=== PATIENT | female | born 1980 | race Caucasian/White ===

== ENCOUNTER 2017-11-08 05:25 | Day surgery (SDC) | payer BC ==
[~2017-11-08] VITALS: Ht 165.1 cm; Wt 53.5 kg
[~2017-11-08 05:25] MED LIST: DAILY VALUE1 EACH PO; Motrin PO; PRILOSEC OTC20 MG PO; ZOLOFT50 MG PO
[2017-11-08 06:06] VITALS: BP 135/82
[2017-11-08 06:06] LABS: BASOPHIL (%) 0.3 % (0-1); EOSINOPHIL (%) 1.1 % (0-5); EOSINOPHIL COUNT 0.1 K/uL (0-0.3); IMMATURE GRANULOCYTE (%) 0.3 % (0.0-0.7); LYMPHOCYTE (%) 27.2 % (15-42); LYMPHOCYTE COUNT 1.7 K/uL (1.0-2.8); MCH 24.2 PG (29.0-34.0); MCHC 30.8 G/DL (30.0-36.0); MCV 78.6 FL (83-99); MONOCYTE (%) 6.7 % (3-12); MONOCYTE COUNT 0.4 K/uL (0-0.8); NEUTROPHIL (%) 64.4 % (45-76); PLATELET COUNT 282 K/uL (156-360); RBC DIS.WIDTH-CV 16.4 % (11.8-14.6); RBC DIS.WIDTH-SD 46.6 % (39-53); RED BLOOD COUNT 4.96 M/uL (3.80-5.20); WHITE BLOOD COUNT 6.3 K/uL (4.1-10.2)
[2017-11-08] MEDS ORDERED: MOTRIN800 MG PO (08:12)
[2017-11-08 08:56] VITALS: BP 120/80
[2017-11-08 09:45] VITALS: BP 132/65
== END 2017-11-08 09:50 | disposition home or self-care (01) ==
LOC: SDC 05:25
PROVIDERS: Obstetrics & Gynecology
PROC: 0UJH8ZZ Inspection of Vagina and Cul-de-sac, Via Natural or Artificial Opening Endoscopic (ICD-10-PCS; principal; 2017-11-08)
DX: N87.0 Mild cervical dysplasia (principal); K21.9 Gastro-esophageal reflux disease without esophagitis; Z88.0 Allergy status to penicillin
CPT/HCPCS: 84702; 85025; 86850; 86900; 86901; 88305; 88307; J0131; J1100; J1885; J2250; J2405; J7643; Q0175